=== PATIENT | female | born 1995 | race Caucasian/White ===

== ENCOUNTER 2017-01-03 23:31 | Emergency (ER) | payer MEDICAID ==
[~2017-01-03] VITALS: Ht 160 cm; Wt 59.0 kg
[2017-01-03 23:31] VITALS: BP 115/64; PULSE 82; RESP 18; TEMP 97.5; O2SAT 99
--- NOTE | 2017-01-03 23:35 | NUR ---
Patient triaged and placed in waiting room. VSS and patient appears in no acute distress at this time. Accompanied by SELF, awaiting available bed, and MD notified of need for MSE.
--- NOTE | 2017-01-04 00:45 | NUR ---
BROUGHT BACK TO BED #5 AND REPORT GIVEN TO DAMION
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
--- NOTE | 2017-01-04 01:35 | NUR ---
ER Dr. Quiles at bedside examining patient.
[2017-01-04 01:55] VITALS: BP 119/73; PULSE 76; RESP 18; TEMP 98.4; O2SAT 99
--- NOTE | 2017-01-04 01:55 | NUR ---
Patient given written and verbal discharge instructions and verbalizes understanding. ER MD discussed with patient the results and treatment provided. Patient in stable condition. ID arm band removed. Patient educated on pain management and to follow up with PMD. Pain Scale 2/10. Opportunity for questions provided and answered.
== END 2017-01-04 01:55 | disposition home or self-care (01) ==
LOC: SED 23:31
DX: S00.83XA Contusion of other part of head, initial encounter (principal); J45.909 Unspecified asthma, uncomplicated; W22.8XXA Striking against or struck by other objects, initial encounter; Y93.89 Activity, other specified; Y99.0 Civilian activity done for income or pay; Y92.89 Other specified places as the place of occurrence of the external cause
CPT/HCPCS: 99281

== ENCOUNTER 2018-06-09 20:19 | Emergency (ER) | payer MEDICAID ==
[~2018-06-09] VITALS: Ht 162.6 cm; Wt 60.8 kg
[2018-06-09 20:50] VITALS: BP_SYST 115
[2018-06-09 21:55] VITALS: BP_SYST 112
== END 2018-06-09 21:55 | disposition home or self-care (01) ==
LOC: SED 20:19
DX: J02.8 Acute pharyngitis due to other specified organisms (principal); F41.9 Anxiety disorder, unspecified; J45.909 Unspecified asthma, uncomplicated
CPT/HCPCS: 36415; 86403; 99283

== ENCOUNTER 2019-04-07 19:36 | Emergency (ER) | payer MEDICAID ==
[~2019-04-07] VITALS: Ht 162.6 cm; Wt 54.4 kg
[2019-04-07 19:54] VITALS: BP_SYST 117
--- NOTE | 2019-04-07 19:57 | NUR ---
Patient triaged and placed in waiting room. VSS and patient appears in no acute distress at this time. Accompanied by self, awaiting available bed, and MD notified of need for MSE.
[2019-04-07] MEDS ORDERED: NACL 0.9% 1,000 ML IV ONE (20:15)
--- NOTE | 2019-04-07 20:18 | NUR ---
Placed in room 04 . Placed on quality assurance monitor chassis, blood pressure machine and pulse oximeter. To gown for exam. Side rails up. Report given to Trudi ALCARAZ.
--- NOTE | 2019-04-07 20:33 | NUR ---
# 22 gauge angiocath placed to left AC. Use of asceptic technique. Opsite placed over site. Blood return noted. Blood for lab drawn from site. Flushed with 10 cc of normal saline. No evidence of infiltration noted. Patient tolerated well.
[2019-04-07 20:37] LABS: BASOPHILS # (AUTO) 0.1 K/uL (0.0-0.2); BASOPHILS % (AUTO) 0.8 % (0.0-2.0); EOSINOPHILS # (AUTO) 0.2 K/uL (0.0-0.4); EOSINOPHILS % (AUTO) 2.7 % (0.0-4.0); HEMATOCRIT 43.1 % (36-48); HEMOGLOBIN 14.9 g/dL (12.0-16.0); LYMPHOCYTES # (AUTO) 2.3 K/uL (1.0-5.5); LYMPHOCYTES % (AUTO) 37.4 % (20.5-51.5); MEAN CORPUSCULAR HEMOGLOBIN 34 pg (27-31); MEAN CORPUSCULAR HGB CONC 35 % (32-36); MEAN CORPUSCULAR VOLUME 97 fL (79.0-98.0); MONOCYTES # (AUTO) 0.4 K/uL (0.0-1.0); MONOCYTES % (AUTO) 5.8 % (1.7-9.3); NEUTROPHILS # (AUTO) 3.3 K/uL (1.8-7.7); NEUTROPHILS % (AUTO) 53.3 % (40.0-70.0); PLATELET COUNT (AUTO) 315 K/uL (130-430); RED BLOOD CELL COUNT(AUTO) 4.43 MIL/uL (4.2-6.2); RED CELL DISTRIBUTION WIDTH 12.1 % (9.0-15.0); WHITE BLOOD COUNT (AUTO) 6.3 K/uL (4.8-10.8)
[2019-04-07 20:47] LABS: CALCIUM 8.9 mg/dL (8.4-11.0); CREATININE 0.68 mg/dL (0.55-1.30); POTASSIUM 3.8 mmol/L (3.5-5.1)
--- NOTE | 2019-04-07 20:51 | NUR ---
ER Dr. Thompson at bedside examining patient.
[2019-04-07 20:52] LABS: ALBUMIN 3.6 g/dL (3.4-4.8); TOTAL BILIRUBIN 1.1 mg/dL (0.0-1.0)
--- NOTE | 2019-04-07 21:05 | NUR ---
Patient c/o dizziness, n/v. Denies chest pain, SOB. Patient denies any other medical history. LMP January, patient is on control (nexplanon implant). Urine HCG is negative at this time.
[2019-04-07 21:16] LABS: BILIRUBIN,URINE NEGATIVE (NEGATIVE); BLOOD, URINE NEGATIVE (NEGATIVE); CLARITY/URINE CLEAR (CLEAR); COLOR,URINE YELLOW (YELLOW); GLUCOSE,URINE NEGATIVE (NEGATIVE); KETONES,URINE NEGATIVE (NEGATIVE); LEUKOCYTE ESTERASE ,URINE NEGATIVE (NEGATIVE); NITRITE, URINE NEGATIVE (NEGATIVE); PROTEIN URINE NEGATIVE (NEGATIVE); UROBILINOGEN,URINE 0.2 (0.2-1.0)
[2019-04-07 22:29] VITALS: BP_SYST 117
--- NOTE | 2019-04-07 22:43 | NUR ---
Patient given written and verbal discharge instructions and verbalizes understanding. ER MD discussed with patient the results and treatment provided. Patient in stable condition. ID arm band removed. IV catheter removed intact and dressing applied, no active bleeding. Rx of meclizine and zofran given. Patient educated on pain management and to follow up with PMD. Pain Scale 0/10. Opportunity for questions provided and answered. Medication side effect fact sheet provided.
== END 2019-04-07 22:42 | disposition home or self-care (01) ==
LOC: SED 19:36
DX: E86.0 Dehydration (principal); R42 Dizziness and giddiness; F41.9 Anxiety disorder, unspecified; J45.909 Unspecified asthma, uncomplicated
CPT/HCPCS: 36415; 80053; 81003; 85025; 96360; 99283; J7030

== ENCOUNTER 2019-06-02 20:29 | Emergency (ER) | payer SELFPAY ==
[~2019-06-02] VITALS: Ht 160 cm; Wt 60.3 kg
[2019-06-02 20:42] VITALS: BP_SYST 129
--- NOTE | 2019-06-02 20:47 | NUR ---
TPatient triaged and placed in waiting room. VSS and patient appears in no acute distress at this time. Accompanied by self, awaiting available bed, and MD notified of need for MSE.
--- NOTE | 2019-06-02 22:00 | NUR ---
[facility] Side rails up. Report given to SHASHI ALCARAZ/PRINCE ALCARAZ.
--- NOTE | 2019-06-02 22:05 | NUR ---
ER Dr. Ortiz at bedside examining patient.
--- NOTE | 2019-06-02 22:15 | NUR ---
Note undone in EDM - 06/02/19 at 2354 by [facility] Pt came into ED with flu-like symptoms for 1 week. Sympt include chills, runny nose, sore throat, coughing and headache pain 06/04. Pt denies N/V/D. pt denies SOB. Pt is A&Ox4. Pt has no s/s of distress. Will continue to monitor.
[2019-06-02 23:00] VITALS: BP_SYST 122
--- NOTE | 2019-06-02 23:00 | NUR ---
Patient given written and verbal discharge instructions and verbalizes understanding. ER MD discussed with patient the results and treatment provided. Patient in stable condition. ID arm band removed. Rx of azithromycin, promethazine, motrin given. Patient educated on pain management and to follow up with PMD. Pain Scale 0/10 . Opportunity for questions provided and answered. Medication side effect fact sheet provided.
== END 2019-06-02 23:00 | disposition home or self-care (01) ==
LOC: SED 20:29
DX: J02.9 Acute pharyngitis, unspecified (principal); F41.9 Anxiety disorder, unspecified; J45.909 Unspecified asthma, uncomplicated
CPT/HCPCS: 36415; 81002; 81025; 86710; 99283

== ENCOUNTER 2020-02-10 19:13 | Emergency (ER) | payer MEDICAID ==
[~2020-02-10] VITALS: Ht 160 cm; Wt 63.5 kg
[2020-02-10 19:20] VITALS: BP_SYST 145
--- NOTE | 2020-02-10 19:40 | NUR ---
Patient to ER bed 7 to gown for evaluation. Side rails up. Report given to HORTENSIA ALCARAZ.
--- NOTE | 2020-02-10 19:45 | NUR ---
ER at bedside examining patient.
--- NOTE | 2020-02-10 19:45 | NUR ---
Pt brought into ED by self. Pt awake, alert, Oriented x4. pt states that she is approx 7 weeks and has been having Nausea/vomiting for past 24 hours without relief. Pt states she has been unable to hold adequate fluids down, and feels dehydrated. Pt denies chest pain, diarrhea, shortness of breath, dizziness, blurred vision. Pt denies any other medical complaint at this time. Pt resting in ED bed, No acute distress at this time. VSS
[2020-02-10] MEDS ORDERED: NACL 0.9% 1,000 ML IV ONE (19:51)
[2020-02-10] MEDS ORDERED: ONDANSETRON HCL 4 MG/2 ML VIAL IVP ONE (20:00)
[2020-02-10 20:22] LABS: CALCIUM 8.9 mg/dL (8.4-11.0); CREATININE 0.7 mg/dL (0.55-1.30); POTASSIUM 4.1 mmol/L (3.5-5.1)
[2020-02-10 20:27] LABS: BASOPHILS % (AUTO) 0.4 % (0.0-2.0); EOSINOPHILS # (AUTO) 0.1 K/uL (0.0-0.4); EOSINOPHILS % (AUTO) 1.3 % (0.0-4.0); HEMATOCRIT 40.4 % (36-48); HEMOGLOBIN 13.8 g/dL (12.0-16.0); LYMPHOCYTES # (AUTO) 1.6 K/uL (1.0-5.5); LYMPHOCYTES % (AUTO) 18.4 % (20.5-51.5); MEAN CORPUSCULAR HEMOGLOBIN 34 pg (27-31); MEAN CORPUSCULAR HGB CONC 34 % (32-36); MEAN CORPUSCULAR VOLUME 99 fL (79.0-98.0); MONOCYTES # (AUTO) 0.5 K/uL (0.0-1.0); MONOCYTES % (AUTO) 6.3 % (1.7-9.3); NEUTROPHILS # (AUTO) 6.4 K/uL (1.8-7.7); NEUTROPHILS % (AUTO) 73.6 % (40.0-70.0); PLATELET COUNT (AUTO) 265 K/uL (130-430); RED BLOOD CELL COUNT(AUTO) 4.07 MIL/uL (4.2-6.2); RED CELL DISTRIBUTION WIDTH 12.7 % (9.0-15.0); WHITE BLOOD COUNT (AUTO) 8.7 K/uL (4.8-10.8)
[2020-02-10 20:28] LABS: ALBUMIN 3.3 g/dL (3.4-4.8); TOTAL BILIRUBIN 0.5 mg/dL (0.0-1.0)
[2020-02-10 20:44] LABS: INR 0.9 (0.8-1.2); PROTHROMBIN TIME 9.3 SECS (9.5-12.5)
--- NOTE | 2020-02-10 20:49 | NUR ---
Pt resting in ED bed comfortably, no distress. Tolerating IV fluids well.
[2020-02-10 20:54] LABS: BILIRUBIN,URINE NEGATIVE (NEGATIVE); BLOOD, URINE NEGATIVE (NEGATIVE); CLARITY/URINE CLEAR (CLEAR); COLOR,URINE YELLOW (YELLOW); GLUCOSE,URINE NEGATIVE (NEGATIVE); KETONES,URINE NEGATIVE (NEGATIVE); LEUKOCYTE ESTERASE ,URINE NEGATIVE (NEGATIVE); NITRITE, URINE NEGATIVE (NEGATIVE); PROTEIN URINE NEGATIVE (NEGATIVE); UROBILINOGEN,URINE 0.2 (0.2-1.0)
[2020-02-10 21:40] VITALS: BP_SYST 138
--- NOTE | 2020-02-10 21:40 | NUR ---
Patient given written and verbal discharge instructions and verbalizes understanding. ER MD discussed with patient the results and treatment provided. Patient in stable condition. ID arm band removed. IV catheter removed intact and dressing applied, no active bleeding. No RX given. Patient educated on pain management and to follow up with PMD. Pain Scale 0/10. Opportunity for questions provided and answered.
== END 2020-02-10 21:40 | disposition home or self-care (01) ==
LOC: SED 19:13
DX: O21.8 Other vomiting complicating pregnancy (principal); J45.909 Unspecified asthma, uncomplicated; Z3A.01 Less than 8 weeks gestation of pregnancy
CPT/HCPCS: 36415; 80053; 81003; 81025; 83690; 85025; 85610; 96361; 96374; 99283; J2405; J7030

== ENCOUNTER 2020-07-25 19:10 | Observation (INO) | payer MEDICAID ==
[~2020-07-25] VITALS: Ht 162.6 cm; Wt 72.6 kg
== END 2020-07-25 20:55 | disposition home or self-care (01) ==
LOC: SPU 19:10
PROVIDERS: ADMIT Obstetrics & Gynecology; ATTEND Obstetrics & Gynecology
DX: O26.893 Other specified pregnancy related conditions, third trimester (principal); R10.30 Lower abdominal pain, unspecified; Z3A.30 30 weeks gestation of pregnancy
CPT/HCPCS: G0378

== ENCOUNTER 2022-04-20 13:47 | Emergency (ER) | payer MEDICAID ==
[~2022-04-20] VITALS: Ht 162.6 cm; Wt 70.3 kg
[2022-04-20 14:02] VITALS: BP_SYST 120
[2022-04-20 14:50] LABS: BILIRUBIN,URINE NEGATIVE (NEGATIVE); BLOOD, URINE NEGATIVE (NEGATIVE); CLARITY/URINE CLEAR (CLEAR); GLUCOSE,URINE NEGATIVE (NEGATIVE); KETONES,URINE NEGATIVE (NEGATIVE); LEUKOCYTE ESTERASE ,URINE NEGATIVE (NEGATIVE); NITRITE, URINE NEGATIVE (NEGATIVE); PH,URINE 6.5 (5.0-8.0); PROTEIN URINE NEGATIVE (NEGATIVE); UROBILINOGEN,URINE 0.2 (0.2-1.0)
[2022-04-20 14:52] LABS: COLOR,URINE YELLOW (YELLOW)
[2022-04-20 15:29] LABS: BASOPHILS # (AUTO) 0.1 K/uL (0.0-0.2); BASOPHILS % (AUTO) 1.1 % (0.0-2.0); EOSINOPHILS # (AUTO) 0.2 K/uL (0.0-0.4); EOSINOPHILS % (AUTO) 2.7 % (0.0-4.0); HEMATOCRIT 40.5 % (36-48); LYMPHOCYTES # (AUTO) 2.2 K/uL (1.0-5.5); LYMPHOCYTES % (AUTO) 36.5 % (20.5-51.5); MEAN CORPUSCULAR HEMOGLOBIN 33 pg (27-31); MEAN CORPUSCULAR HGB CONC 35 % (32-36); MEAN CORPUSCULAR VOLUME 94 fL (79.0-98.0); MONOCYTES # (AUTO) 0.4 K/uL (0.0-1.0); MONOCYTES % (AUTO) 7.4 % (1.7-9.3); NEUTROPHILS # (AUTO) 3.2 K/uL (1.8-7.7); NEUTROPHILS % (AUTO) 52.3 % (40.0-70.0); PLATELET COUNT (AUTO) 335 K/uL (130-430); RED CELL DISTRIBUTION WIDTH 12.7 % (9.0-15.0); WHITE BLOOD COUNT (AUTO) 6.1 K/uL (4.8-10.8)
[2022-04-20 15:33] LABS: CALCIUM 8.1 mg/dL (8.4-11.0); CREATININE 0.83 mg/dL (0.55-1.30); POTASSIUM 3.8 mmol/L (3.5-5.1)
[2022-04-20 15:40] LABS: ALBUMIN 3.4 g/dL (3.4-4.8); TOTAL BILIRUBIN 0.5 mg/dL (0.0-1.0)
[2022-04-20] MEDS ORDERED: KETOROLAC TROMETHAMINE 30 MG VIAL IM ONE (16:15)
[2022-04-20] MEDS ORDERED: DICY10CA13 PO (17:07)
[2022-04-20] MEDS ORDERED: NAPR-1172 PO (17:07)
[2022-04-20 17:21] VITALS: BP_SYST 128
== END 2022-04-20 17:22 | disposition home or self-care (01) ==
LOC: SED 13:47
DX: R10.31 Right lower quadrant pain (principal); J45.909 Unspecified asthma, uncomplicated
CPT/HCPCS: 36415; 74176; 76376; 80053; 81003; 81025; 83690; 85025; 96372; 99284; J1885

== ENCOUNTER 2022-04-25 10:04 | Emergency (ER) | payer MEDICAID ==
[~2022-04-25] VITALS: Ht 162.6 cm; Wt 68.9 kg
[~2022-04-25 10:04] MED LIST: DICY10CA13 PO; NAPR-1172 PO
[2022-04-25 10:25] VITALS: BP_SYST 114
[2022-04-25] MEDS ORDERED: KETOROLAC TROMETHAMINE 60 MG/2 ML VIAL IM ONE (10:30)
[2022-04-25] MEDS ORDERED: NAPR-688 PO (11:46)
[2022-04-25] MEDS ORDERED: MAGN296S8 PO (11:46)
== END 2022-04-25 11:50 | disposition home or self-care (01) ==
LOC: SED 10:04
DX: R10.31 Right lower quadrant pain (principal); J45.909 Unspecified asthma, uncomplicated
CPT/HCPCS: 74018; 81025; 96372; 99283; J1885

== ENCOUNTER 2022-12-11 12:52 | Emergency (ER) | payer MEDICAID ==
[~2022-12-11] VITALS: Ht 162.6 cm; Wt 73.5 kg
[~2022-12-11 12:52] MED LIST changes: +MAGN296S8 PO; +NAPR-688 PO
[2022-12-11 13:13] VITALS: BP_SYST 114
[2022-12-11] MEDS ORDERED: ALPR0.5T PO (16:07)
[2022-12-11 16:18] VITALS: BP_SYST 114
== END 2022-12-11 16:18 | disposition home or self-care (01) ==
LOC: SED 12:52
DX: R07.9 Chest pain, unspecified (principal); R06.4 Hyperventilation; R00.2 Palpitations; J45.909 Unspecified asthma, uncomplicated; R20.2 Paresthesia of skin; Z79.899 Other long term (current) drug therapy
CPT/HCPCS: 71045; 93005; 99283

== ENCOUNTER 2023-04-18 10:53 | Emergency (ER) | payer MEDICAID ==
[~2023-04-18] VITALS: Ht 162.6 cm; Wt 73.9 kg
[2023-04-18 10:53] VITALS: BP_SYST 110
[~2023-04-18 10:53] MED LIST changes: +ALPR0.5T PO
[2023-04-18] MEDS ORDERED: KETOROLAC TROMETHAMINE 30 MG VIAL IVP ONE (11:45)
[2023-04-18] MEDS ORDERED: NACL 0.9% 1,000 ML IV ONE (11:45)
[2023-04-18] MEDS ORDERED: ONDANSETRON HCL 4 MG/2 ML VIAL IVP ONE (11:45)
[2023-04-18] MEDS ORDERED: DEXAMETHASONE SOD PHOSPHATE 10 MG/ML VIAL PO ONE (12:00)
[2023-04-18] MEDS ORDERED: OSELTAMIVIR PHOSPHATE 75 MG CAPSULE PO ONE (12:15)
[2023-04-18 12:17] LABS: BASOPHILS % (AUTO) 0.3 % (0.0-2.0); EOSINOPHILS % (AUTO) 0.1 % (0.0-4.0); HEMATOCRIT 38.7 % (36-48); HEMOGLOBIN 13.4 g/dL (12.0-16.0); LYMPHOCYTES # (AUTO) 0.8 K/uL (1.0-5.5); LYMPHOCYTES % (AUTO) 7.7 % (20.5-51.5); MEAN CORPUSCULAR HEMOGLOBIN 33 pg (27-31); MEAN CORPUSCULAR HGB CONC 35 % (32-36); MEAN CORPUSCULAR VOLUME 95 fL (79.0-98.0); MONOCYTES # (AUTO) 0.4 K/uL (0.0-1.0); MONOCYTES % (AUTO) 4.1 % (1.7-9.3); NEUTROPHILS # (AUTO) 9.5 K/uL (1.8-7.7); NEUTROPHILS % (AUTO) 87.8 % (40.0-70.0); PLATELET COUNT (AUTO) 271 K/uL (130-430); RED BLOOD CELL COUNT(AUTO) 4.09 MIL/uL (4.2-6.2); RED CELL DISTRIBUTION WIDTH 12.4 % (9.0-15.0); WHITE BLOOD COUNT (AUTO) 10.8 K/uL (4.8-10.8)
[2023-04-18 12:34] LABS: CALCIUM 8.1 mg/dL (8.4-11.0); CREATININE 0.82 mg/dL (0.55-1.30)
[2023-04-18 12:39] LABS: ALBUMIN 3.7 g/dL (3.4-4.8); TOTAL BILIRUBIN 0.8 mg/dL (0.0-1.0)
[2023-04-18] MEDS ORDERED: ONDA-8 TL (13:18)
[2023-04-18] MEDS ORDERED: OSEL75CA PO (13:18)
[2023-04-18] MEDS ORDERED: IBUP-1969 PO (13:18)
[2023-04-18] MEDS ORDERED: ACET-73 PO (13:18)
[2023-04-18 13:45] VITALS: BP_SYST 110
== END 2023-04-18 13:39 | disposition home or self-care (01) ==
LOC: SED 10:53
DX: J10.1 Influenza due to other identified influenza virus with other respiratory manifestations (principal); E86.0 Dehydration; R50.9 Fever, unspecified; R51.9 Headache, unspecified; J45.909 Unspecified asthma, uncomplicated; Z79.899 Other long term (current) drug therapy; Z20.822 Contact with and (suspected) exposure to COVID-19
CPT/HCPCS: 80053; 85025; 86403; 87040; 36415; 71045; 99284; 96361; 96374; 96375; 87081; 83605; 87804 ×2; 87426; G9035; J1100; J1885; J2405; J7030

== ENCOUNTER 2023-12-12 00:51 | Emergency (ER) | payer MEDICAID ==
[~2023-12-12] VITALS: Ht 162.6 cm; Wt 72.6 kg
[~2023-12-12 00:51] MED LIST changes: +ACET-2634 PO; +ACET-73 PO; +DICY-14 PO; -DICY10CA13 PO; +IBUP-1969 PO; +ONDA-8 TL; +OSEL75CA PO
[2023-12-12 00:54] VITALS: BP_SYST 129; PULSE 97; RESP 24; TEMP 98.5; O2SAT 100
[2023-12-12] MEDS ORDERED: predniSONE 20 MG TABLET PO ONE (01:15)
[2023-12-12] MEDS ORDERED: ALBUTEROL SULFATE 0.083% 2.5 MG/3 ML VIAL.NEB INH ONE (01:15)
[2023-12-12] MEDS ORDERED: BENZ100C92 PO (01:56)
[2023-12-12] MEDS ORDERED: MED4 PO (01:56)
[2023-12-12 02:04] VITALS: BP_SYST 129; PULSE 97; RESP 24; TEMP 98.5; O2SAT 99
== END 2023-12-12 02:04 | disposition home or self-care (01) ==
LOC: SED 00:51
DX: R06.02 Shortness of breath (principal); J45.901 Unspecified asthma with (acute) exacerbation; R07.89 Other chest pain; Z79.899 Other long term (current) drug therapy
CPT/HCPCS: 99283; 94640; J7512

== ENCOUNTER 2024-05-25 13:20 | Emergency (ER) | payer SELFPAY ==
[~2024-05-25] VITALS: Ht 167.6 cm; Wt 81.6 kg
[~2024-05-25 13:20] MED LIST changes: +BENZ100C92 PO; +MED4 PO
[2024-05-25 13:25] VITALS: BP_SYST 114; PULSE 76; RESP 18; TEMP 98; O2SAT 97
[2024-05-25 14:38] VITALS: BP_SYST 114; PULSE 76; RESP 18; TEMP 98; O2SAT 97
== END 2024-05-25 14:24 | disposition home or self-care (01) ==
LOC: SED 13:20
DX: L70.8 Other acne (principal); R22.0 Localized swelling, mass and lump, head; J45.909 Unspecified asthma, uncomplicated; F41.9 Anxiety disorder, unspecified; Z79.899 Other long term (current) drug therapy; Z79.2 Long term (current) use of antibiotics
CPT/HCPCS: 99281